=== PATIENT | female | born 1955 | race Two or more races ===

== ENCOUNTER 2024-07-03 12:51 | Observation (INO) | payer MEDICARE, SELFPAY ==
[2024-07-03] VITALS (31 sets, daily range): BP systolic 100–149; BP diastolic 60–82; PULSE 59–78; TEMP 36.7–36.8; O2SAT 92–100; BMI 21.8; BMI 23.0
[2024-07-03] MEDS: KETOROLAC TROMETHAMINE 30 MG/ML VIAL 15 MG IVP (13:44)
[2024-07-03] MEDS: ONDANSETRON PF 4 MG/2 ML VIAL IV (13:44)
[2024-07-03 13:52] LABS: Basophils Absolute Auto 0.1 10^3/uL (0.0-0.1); Basophils Percent Auto 0.5 % (0.2-2.0); Eosinophils Percent Auto 0.3 % (0.9-7.0); Hematocrit 37.3 % (36.0-48.0); Hemoglobin 12.9 g/dL (12.0-16.0); Immature Granulocytes Abs Auto 0.03 10^3/uL (0.00-0.03); Immature Granulocytes Pct Auto 0.2 % (0.0-0.5); Lymphocytes Absolute Auto 1.5 10^3/uL (1.2-3.8); Lymphocytes Percent Auto 11.7 % (20.5-60.0); Mean Corpuscular HGB Conc 34.6 g/dL (29.9-35.2); Mean Corpuscular Volume 89.7 fL (81.0-99.0); Mean Platelet Volume 11.5 fL (9.5-13.5); Monocytes Absolute Auto 0.7 10^3/uL (0.3-0.8); Monocytes Percent Auto 5.8 % (1.7-12.0); Neutrophils Absolute Auto 10.5 10^3/uL (1.4-6.5); Neutrophils Percent Auto 81.5 % (43.0-75.0); Platelet Count 239 10^3/uL (150-450); Red Blood Count 4.16 10^6/uL (4.20-5.40); Red Cell Distribution Width 12.8 % (11.0-15.0); White Blood Count 12.8 10^3/uL (4.0-11.0)
[2024-07-03 14:15] LABS: Alanine Aminotransferase 25 U/L (14-59); Albumin Globulin Ratio 1.2; Alkaline Phosphatase 77 U/L (46-116); Anion Gap 13.2; Aspartate Amino Transferase 23 U/L (15-37); BUN Creatinine Ratio 15.4; Bilirubin Total 0.6 mg/dL (0.2-1.0); Calcium 9.5 mg/dL (8.5-10.1); Carbon Dioxide 27.2 mmol/L (21.0-32.0); Chloride 100 mmol/L (98-107); Estimated GFR (African America >60 (>=60 mL/min/1.73m^2); Estimated GFR (Non-African Ame 53 (>=60 mL/min/1.73m^2); Globulin 3.4 g/dL; Glucose 121 mg/dL (74-106); Potassium 3.4 mmol/L (3.5-5.1); Sodium 137 mmol/L (136-145); Total Protein 7.4 g/dL (6.4-8.2)
--- NOTE | 2024-07-03 14:38 | ECG_ITS ---
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 Measurements Intervals [place] Rate: 60 P: 210 NM: 148 QRS: 143 QRSD: 68 T: 164 QT: 442 QTc: 442 Interpretive Statements 1200 Atrial rhythm 3534 Lateral myocardial infarction, age undetermined 5120 Possible right ventricular hypertrophy 0101 Possible arm leads reversed, check lead requested 9150 abnormal ECG No previous ECG available for comparison Electronically Signed On 07-03-2024 18:13:54 EDT by ELLIOTT HAWTHORNE M.D.
[2024-07-03] MEDS: MORPHINE SULFATE 2 MG/ML SYRINGE IV ×2 (14:53→17:20)
[2024-07-03] MEDS: PROCHLORPERAZINE 10 MG/2 ML VIAL 5 MG IV (14:53)
[2024-07-03] MEDS: FAMOTIDINE/PF 20 MG/2 ML VIAL IV (14:53)
[2024-07-03 15:04] LABS: Troponin I High Sensitivity <4.0 pg/mL (4.0-51.3)
[2024-07-03] MEDS: 0.9 % SODIUM CHLORIDE 1,000 ML 1000 ML IV (16:00)
--- NOTE | 2024-07-03 16:39 | ED.BACK1 ---
HPI HPI - Back Pain/Injury General Chief Complaint: Back Pain/Injury Stated Complaint: FLANK PAIN NAUSEA Time Seen by Provider: 07/03/24 13:11 Source: patient Mode of arrival: walk-in Limitations: no limitations History of Present Illness HPI Narrative: The patient is a 68-year-old female coming to the ER with a left-sided pain radiating to her left lower quadrant associated with crampy pain, pain is according to her is 10 out of 10 it started almost 2 days ago and the patient is having also nausea and vomiting and retching with the pain, she does have a history of constipation No history of cough chest pain or any difficulty breathing Related Data Home Medications ?Medication ?Instructions ?Recorded ?Confirmed furosemide 40 mg tablet 40 mg PO DAILY 07/03/24 07/03/24 spironolactone 25 mg tablet 25 mg PO DAILY 07/03/24 07/03/24 Allergies Allergy/AdvReac Type Severity Reaction Status Date / Time codeine AdvReac Mild emesis Verified 07/03/24 14:28 Opioid HPI Opioid Management Most Recent Opioid Data: Last Pain Scale 8 Today, 18:30 Last ED Pain Assessment Today, 16:57 Last MAR Pain Assessment Today, 13:44 Review of Systems ROS Status of ROS 10 or more systems reviewed and unremarkable except as noted in history and below PFSH PFSH Social History Little interest or pleasure in doing things: not at all Feeling down, depressed, or hopeless: not at all Exam Narrative Exam Narrative: Nurses notes and vital signs reviewed and patient is not hypoxic. General: Patient in distress due to pain and nausea Skin: Warm, dry, no pallor noted. No rash. Head: Normocephalic, atraumatic. Neck: Supple, non-tender. Cardiovascular: Regular Rate and Rhythm without murmur, gallop or rub. Respiratory: No accessory muscle use or respiratory distress. Lungs are clear to auscultation, no wheezing, rales or rhonchi Chest Wall: no tenderness Back: No midline thoracic or lumbar vertebral tenderness. Left tenderness with palpation of the CVA although the patient have no tenderness with superficial palpation and there is no Rash Musculoskeletal: normal ROM, no calf or popliteal tenderness, no lower extremity edema/swelling GI: Abdomen is soft, non-distended. Normal bowel sounds. No masses appreciated. Suprapubic discomfort Neurological: A&O x4. No cranial nerve dysfunction observed Constitutional Vital Signs, click to edit/add: Last Vital Signs Temp 98.1 F 07/03/24 16:56 Pulse 67 07/03/24 18:28 Resp 28 H 07/03/24 18:28 BP 137/75 07/03/24 18:28 Pulse Ox 97 07/03/24 18:28 Course Vital Signs Vital signs: Vital Signs Temperature 98.2 F 07/03/24 13:05 Pulse Rate 64 07/03/24 13:05 Respiratory Rate 18 07/03/24 13:05 Blood Pressure 128/80 07/03/24 13:05 Pulse Oximetry 100 07/03/24 13:05 Temperature 98.1 F 07/03/24 16:56 Pulse Rate 67 07/03/24 18:28 Respiratory Rate 28 H 07/03/24 18:28 Blood Pressure 137/75 07/03/24 18:28 Pulse Oximetry 97 07/03/24 18:28 MDM - Back Pain/Injury MDM Narrative Medical decision making narrative: The patient EKG in the ER showing sinus rhythm with a heart rate of [address] elevation or depression The patient troponin repeated twice showed no trending up that is concerning for ACS The patient CAT scan initially without contrast showed no acute pathology except for large amount of constipation Patient was treated initially with Toradol and there was no improvement when she was treated with morphine showing some improvement for her pain The patient CAT scan repeated with contrast after I explained to the patient with the fact that she is having severe pain looking for underlying pathology with the reason for the CAT scan Patient provided with IV fluids The patient pain could be mostly secondary to her back pain especially with her history of lumbar spine surgeries and chronic subluxation seen on the CAT scan The patient was in the bed the whole time she was in the ER and the patient looked herself she will be admitted for observation pain control of the intractable back pain that she is having Patient case discussed with Laurence RIVAS and she will be admitted under Lab Data Labs: Lab Results 07/03/24 07/03/24 Range/Units 13:25 17:08 WBC 12.8 H (4.0-11.0) 10^3/uL RBC 4.16 L (4.20-5.40) 10^6/uL Hgb 12.9 (12.0-16.0) g/dL Hct 37.3 (36.0-48.0) % MCV 89.7 (81.0-99.0) fL MCH 31.0 (26.7-34.0) pg MCHC 34.6 (29.9-35.2) g/dL RDW 12.8 (11.0-15.0) % Plt Count 239 (150-450) 10^3/uL MPV 11.5 (9.5-13.5) fL Neut % (Auto) 81.5 H (43.0-75.0) % Lymph % (Auto) 11.7 L (20.5-60.0) % [place] % (Auto) 5.8 (1.7-12.0) % Eos % (Auto) 0.3 L (0.9-7.0) % Baso % (Auto) 0.5 (0.2-2.0) % Neut # (Auto) 10.5 H (1.4-6.5) 10^3/uL Lymph # (Auto) 1.5 (1.2-3.8) 10^3/uL [place] # (Auto) 0.7 (0.3-0.8) 10^3/uL Eos # (Auto) 0.0 (0.0-0.7) 10^3/uL Baso # (Auto) 0.1 (0.0-0.1) 10^3/uL Abs Immat Gran (auto) 0.03 (0.00-0.03) 10^3/uL Imm/Tot Granulo (auto) 0.2 (0.0-0.5) % Sodium 137 (136-145) mmol/L Potassium 3.4 L (3.5-5.1) mmol/L Chloride 100 (98-107) mmol/L Carbon Dioxide 27.2 (21.0-32.0) mmol/L Anion Gap 13.2 BUN 16.0 (7.0-18.0) mg/dL Creatinine 1.04 H (0.55-1.02) mg/dL Est GFR ( Amer) >60 (>=60 mL/min/1.73m^2) Est GFR (Non-Af Amer) 53 L (>=60 mL/min/1.73m^2) BUN/Creatinine Ratio 15.4 Glucose 121 H (74-106) mg/dL Lactate 2.9 H* 1.4 (0.4-2.0) mmol/L Calcium 9.5 (8.5-10.1) mg/dL Total Bilirubin 0.6 (0.2-1.0) mg/dL AST 23 (15-37) U/L ALT 25 (14-59) U/L Alkaline Phosphatase 77 (46-116) U/L Troponin I High Sens <4.0 L 4.6 (4.0-51.3) pg/mL Total Protein 7.4 (6.4-8.2) g/dL Albumin 4.0 (3.4-5.0) g/dL Globulin 3.4 g/dL Albumin/Globulin Ratio 1.2 Lipase 31.0 (16.0-77.0) U/L Discharge Plan Discharge Chief Complaint: Back Pain/Injury Clinical Impression: Intractable back pain, Constipation Patient Disposition: Admitted as Observation Time of Disposition Decision: 18:40 Condition: Good
--- NOTE | 2024-07-03 16:57 | PC.NURSE ---
States since waking pain is starting to return, certain movements causes pain
[2024-07-03 17:34] LABS: Troponin I High Sensitivity 4.6 pg/mL (4.0-51.3)
[2024-07-03 17:45] LABS: Lactate/Lactic Acid 2.9 mmol/L (0.4-2.0)
[2024-07-03 18:14] LABS: Lactate/Lactic Acid 1.4 mmol/L (0.4-2.0)
[2024-07-03 19:30] LABS: Bilirubin Urine NEGATIVE (NEGATIVE); Blood Urine NEGATIVE (NEGATIVE); Clarity Urine CLEAR (CLEAR); Color Urine LT. YELLOW (YELLOW); Glucose Urine UA NEGATIVE (NEGATIVE); Ketones Urine NEGATIVE (NEGATIVE); Leukocyte Esterase Urine TRACE (NEGATIVE); Nitrite Urine NEGATIVE (NEGATIVE); Protein Urine NEGATIVE (NEG/TRACE); Urobilinogen Urine 0.2 EU/dL (0.2-1.0); pH Urine 7.5 (5.0-9.0)
[2024-07-03 19:31] LABS: Urine Microscopic Indicated YES
[2024-07-03 19:34] LABS: Bacteria Urine SMALL #/HPF (NONE SEEN); Cast Seen? NONE SEEN #/LPF (NONE SEEN); Crystals Seen? None Seen #/HPF (None Seen); Mucus Urine NONE SEEN (NONE SEEN); RBC Urine NONE SEEN #/HPF (0-2); Squamous Epithelial Cell Urine FEW #/LPF (NONE/RARE); Urine Culture Indicated YES-FRMC
[2024-07-03] MEDS: SENNOSIDES/DOCUSATE SODIUM 1 TAB TABLET PO (21:39)
[2024-07-03] MEDS: ACETAMINOPHEN 500 MG TABLET 1000 MG PO (21:39)
[2024-07-03] MEDS: 0.9 % SODIUM CHLORIDE 1,000 ML 125 ML IV (21:40)
[2024-07-03] MEDS: TIZANIDINE HCL 4 MG TABLET PO (21:40)
[2024-07-03] MEDS: ENOXAPARIN SODIUM 40 MG/0.4 ML SYRINGE SUBQ (21:40)
[2024-07-03] MEDS: LACTULOSE 10 GM/15 ML BOTTLE 237 ML PO (21:40)
[2024-07-04 02:00] VITALS: O2SAT 95
[2024-07-04] MEDS: ACETAMINOPHEN 500 MG TABLET 1000 MG PO ×2 (03:11→09:10)
[2024-07-04 03:14] VITALS: BP 115/58; PULSE 74; TEMP 36.7; O2SAT 96
[2024-07-04] MEDS: 0.9 % SODIUM CHLORIDE 1,000 ML 125 ML IV (05:10)
[2024-07-04] MEDS: TIZANIDINE HCL 4 MG TABLET PO (05:10)
[2024-07-04 06:27] LABS: Basophils Percent Auto 0.6 % (0.2-2.0); Eosinophils Absolute Auto 0.1 10^3/uL (0.0-0.7); Eosinophils Percent Auto 1.4 % (0.9-7.0); Hematocrit 30.1 % (36.0-48.0); Hemoglobin 10.3 g/dL (12.0-16.0); Immature Granulocytes Abs Auto 0.01 10^3/uL (0.00-0.03); Immature Granulocytes Pct Auto 0.2 % (0.0-0.5); Lymphocytes Percent Auto 30.7 % (20.5-60.0); Mean Corpuscular HGB Conc 34.2 g/dL (29.9-35.2); Mean Corpuscular Hemoglobin 30.8 pg (26.7-34.0); Mean Corpuscular Volume 90.1 fL (81.0-99.0); Monocytes Absolute Auto 0.6 10^3/uL (0.3-0.8); Monocytes Percent Auto 8.8 % (1.7-12.0); Neutrophils Absolute Auto 3.7 10^3/uL (1.4-6.5); Neutrophils Percent Auto 58.3 % (43.0-75.0); Platelet Count 169 10^3/uL (150-450); Red Blood Count 3.34 10^6/uL (4.20-5.40); White Blood Count 6.4 10^3/uL (4.0-11.0)
[2024-07-04 06:39] LABS: Anion Gap 10.6; BUN Creatinine Ratio 12.5; Calcium 8.5 mg/dL (8.5-10.1); Carbon Dioxide 27.8 mmol/L (21.0-32.0); Chloride 106 mmol/L (98-107); Estimated GFR (African America >60 (>=60 mL/min/1.73m^2); Estimated GFR (Non-African Ame >60 (>=60 mL/min/1.73m^2); Glucose 89 mg/dL (74-106); Potassium 3.4 mmol/L (3.5-5.1); Sodium 141 mmol/L (136-145)
[2024-07-04 07:33] VITALS: BP 113/65; PULSE 67; TEMP 36.8; O2SAT 97
[2024-07-04 08:21] VITALS: PULSE 67; O2SAT 97
[2024-07-04] MEDS: SENNOSIDES/DOCUSATE SODIUM 1 TAB TABLET PO (09:10)
[2024-07-04] MEDS: FUROSEMIDE 40 MG TABLET PO (09:10)
[2024-07-04] MEDS: SPIRONOLACTONE 25 MG TABLET PO (09:10)
[2024-07-04] MEDS: ENOXAPARIN SODIUM 40 MG/0.4 ML SYRINGE SUBQ (09:11)
--- NOTE | 2024-07-04 10:22 | PM.HP ---
HPI H&P: HPI History of Present Illness Chief complaint: INTRACTABLE BACK PAIN Narrative: History of presenting illness and Hospital course: 68-year-old female with history of essential hypertension, herniated lumbar disc status post surgery about 30 years ago presented to ED with left-sided back pain and spasms. According to the patient, she has been experiencing intermittent left sided back pain/spasm for about a month or so. She could not tell me if there is an aggravating or alleviating factor. However when her pain starts, it lasts for a few minutes and then usually goes away. She came to ED last evening because her pain was in variable and persistent. She reports feeling nauseous and throwing up once or twice because of pain. She denies radiation to left lower extremity. She denies fecal or urinary incontinence. She also denies weakness/numbness associated with her back pain. She thought her pain was secondary to kidney stones. She had a CT abdomen pelvis in ED that was negative for kidney stones but showed large stool burden, diverticulosis, right renal cysts, pancreatic cysts and possible ileitis//colitis. She also had chronic degenerative changes on CT lumbar. She was admitted for overnight observation for intractable back pain and pain control. Earlier today, she felt well and had minimal left-sided back pain. She denies nausea, vomiting or abdominal pain. Clinically she does not have any evidence of colitis/ileitis. Patient is medically stable for discharge. She was instructed to return to ED if she had worsening/intractable pain. She will be sent home on tizanidine as needed for pain. I also ordered outpatient physical therapy for her and recommended following up with PCP in 1 to 2 weeks. She will benefit from getting an MRI if her pain persists/worsens despite physical therapy as outpatient. I also informed her that she will need outpatient follow-up for incidental findings noted on CT abdomen pelvis to ensure renal/pancreatic cyst are not neoplastic. Discharge diagnoses: Intractable low back pain likely muscular sprain/spasm Discharge disposition: Home Opioid HPI Opioid Management Most Recent Pain and Opioid Data: Last Pain Scale 3 Today, 10:00 Last Pain Assessment 07/03/24, 21:00 Last ED Pain Assessment 07/03/24, 16:57 Last MAR Pain Assessment 07/03/24, 13:44 Last ORT Total Score 0 07/03/24, 20:15 Last ORT Risk Category Low Risk 05/17/25, 20:15 Review of Systems ROS Status of ROS 10 or more systems reviewed and unremarkable except as noted in history and below [facility] Medical History (Updated 07/04/24 @ 10:23 by Shaikh Kristin MD) Pancreatic cyst ?K86.2 - Cyst of pancreas (ICD-10) Renal cyst, right ?N28.1 - Cyst of kidney, acquired (ICD-10) Congestive heart failure ?I50.9 - Heart failure, unspecified (ICD-10) Surgical History (Updated 07/03/24 @ 20:55 by Erna Andrade) [place] teeth removed ?K08.409 - Partial loss of teeth, unspecified cause, unspecified class (ICD-10) Previous back surgery ?Z98.890 - Other specified postprocedural states (ICD-10) Hx of appendectomy ?Z90.49 - Acquired absence of other specified parts of digestive tract (ICD-10) Hx of cholecystectomy ?Z90.49 - Acquired absence of other specified parts of digestive tract (ICD-10) H/O: hysterectomy ?Z90.710 - Acquired absence of both cervix and uterus (ICD-10) Family History (Updated 07/03/24 @ 20:44 by Erna Andrade) Mother Family history of CHF (congestive heart failure) Family history of hypertension Family history of myocardial infarction Father Family history of CHF (congestive heart failure) Family history of cancer Family history of hypertension Family history of myocardial infarction Sister Family history of cancer Grandmother Family history of stroke Social History (Updated 07/03/24 @ 20:45 by Erna Andrade) Within the past year, how often did you have a drink containing alcohol: never Score interpretation: A score less than 3 is consistent with normal alcohol consumption. Smoking status: Never smoker Non-prescribed substance use: cannabis (any form) Non-prescribed substance use details: 1/2 gummy at bedtime Previous occupational history: retired Highest level of school completed/degree received: high school graduate Are you now , , , , never or living with a partner: In a typical week, how many times do you talk on the telephone with family, friends, or neighbors: 3 or more times per week How often do you get together with friends or relatives: 3 or more times per week How often do you attend adventism or uatsdin services: 1-3 times per year Little interest or pleasure in doing things: not at all Feeling down, depressed, or hopeless: not at all Feel stressed/tense/nervous/anxious/difficulty sleeping: not at all Do you think of yourself as: straight/heterosexual Gender Identity: female Meds Home Medications and Allergies Home Medications ?Medication ?Instructions ?Recorded ?Confirmed ?Type acetaminophen 325 mg tablet 650 mg PO Q6H PRN fever or pain 07/03/24 07/03/24 History (Aminofen) furosemide 40 mg tablet 40 mg PO DAILY 07/03/24 07/03/24 History spironolactone 25 mg tablet 25 mg PO DAILY 07/03/24 07/03/24 History tizanidine 4 mg tablet 4 mg PO Q8H PRN muscle spasticity 07/04/24 Rx #30 tabs Allergies Allergy/AdvReac Type Severity Reaction Status Date / Time codeine AdvReac Mild emesis Verified 07/03/24 14:28 Exam Constitutional Vital Signs, click to edit/add: Last Vital Signs Temp 98.3 F 07/04/24 07:33 Pulse 67 07/04/24 08:21 Resp 18 07/04/24 08:21 BP 113/65 07/04/24 07:33 Pulse Ox 97 07/04/24 08:21 O2 Del Method Room Air 07/04/24 07:33 Documenting provider has reviewed patient's vital signs: yes Common normals: no apparent distress and oriented x3 General appearance: cooperative [facility] Common normals: normocephalic and head/scalp atraumatic Head and scalp: normocephalic and atraumatic Eye Common normals: conjunctivae normal and no scleral icterus Conjunctiva: conjunctiva(e) normal Respiratory Common normals: normal respiratory effort and clear to auscultation bilaterally Effort & inspection: able to speak in complete sentences Auscultation: clear to auscultation bilaterally Cardio Common normals: regular rate, S1 normal heart sound and S2 normal heart sound Rate: regular rate Heart sounds: S1 normal and S2 normal GI Common normals: Normal to inspection, nondistended, normoactive bowel sounds present, soft to palpation, non-tender and no hepatosplenomegaly Palpation: soft and no hepatosplenomegaly Back & Pelvis Common normals: no CVA tenderness Thoracic spine/upper back: thoracic ROM normal Lumbar spine/lower back: lumbar ROM normal Pelvis: buttocks normal Sacroiliac joints: SI joints normal Extremity Common normals: no clubbing, cyanosis or edema Neuro Common normals: oriented x3, moves all extremities and no focal motor deficits Psych Common normals: mental status grossly normal, denies hallucinations, denies homicidal ideation and denies suicidal ideation Results Labs Labs: Short CBC 07/03/24 07/04/24 Range/Units 13:25 05:45 WBC 12.8 H 6.4 (4.0-11.0) 10^3/uL Hgb 12.9 10.3 L (12.0-16.0) g/dL Hct 37.3 30.1 L (36.0-48.0) % Plt Count 239 169 (150-450) 10^3/uL BMP 07/03/24 07/04/24 13:25 05:45 Sodium 137 141 Potassium 3.4 L 3.4 L Chloride 100 106 Carbon Dioxide 27.2 27.8 BUN 16.0 11.0 Creatinine 1.04 H 0.88 Glucose 121 H 89 Calcium 9.5 8.5 Liver Function 07/03/24 Range/Units 13:25 Total Bilirubin 0.6 (0.2-1.0) mg/dL AST 23 (15-37) U/L ALT 25 (14-59) U/L Alkaline Phosphatase 77 (46-116) U/L Albumin 4.0 (3.4-5.0) g/dL Urine 07/03/24 Range/Units 13:15 Urine Color Lt. yellow (YELLOW) Urine Clarity Clear (CLEAR) Urine pH 7.5 (5.0-9.0) Ur Specific [place] 1.010 (1.005-1.025) Urine Protein Negative (NEG/TRACE) mg/dL Urine Glucose (UA) Negative (NEGATIVE) mg/dL Assessment and Plan Assessment and Plan (1) Intractable back pain: (2) Constipation: Qualifiers: Constipation type: chronic idiopathic constipation Qualified Code(s): K59.04 - Chronic idiopathic constipation (3) Renal cyst, right: (4) Pancreatic cyst: Plan Continue with intractable back pain that is likely muscular and is now improved with overnight treatment. She is medically stable for discharge. She will be sent home on oral tizanidine as needed. I also ordered outpatient physical therapy for her. Patient was educated on worrisome signs and symptoms and was instructed to return to ED if she develop those signs. Patient will need to follow-up with PCP in 1 to 2 weeks.
--- NOTE | 2024-07-05 11:40 | CM.DCFOLLOWU ---
1st attempt 07/05/24, no answer
--- NOTE | 2024-07-06 12:50 | CM.DCFOLLOWU ---
2nd attempt 07/06/24, no answer
--- NOTE | 2024-07-07 11:18 | CM.DCFOLLOWU ---
Person spoke with:patient How are you feeling?not feeling well How is your pain?having pain and nausea Did you understand your discharge instructions?yes Do you have any questions about your discharge instructions?no Were you given any prescriptions at discharge?yes Were you able to get your prescriptions filled?yes Do you understand how to take your medications as ordered?yes Do you have any questions about your follow up appointment and do you plan to keep your follow up appointment?no questions. waiting for call back for new pcp. advised to call back if she does not hear back. Is there anything else that you would like to discuss?no Questions/Comments/Concerns/Other:advised to return to ED if pain and nausea continues
== END 2024-07-04 11:00 | disposition home or self-care (01) ==
LOC: ER 18:47 → MS 20:10
PROVIDERS: Registered Nurse; Admitting Provider Internal Medicine; Emergency Provider Emergency Medicine; Visit Provider Internal Medicine
DX: M54.50 Low back pain, unspecified (principal); M62.830 Muscle spasm of back; K59.04 Chronic idiopathic constipation; N28.1 Cyst of kidney, acquired; K86.2 Cyst of pancreas; K57.30 Diverticulosis of large intestine without perforation or abscess without bleeding; Z79.899 Other long term (current) drug therapy; Z88.5 Allergy status to narcotic agent
CPT/HCPCS: 36415; 74176; 74177; 80048; 80053; 81001; 83605; 83690; 83735; 84484; 85025; 87086; 93005; 94667; 94761; 96361; 96372; 96374; 96375; 96376; 99285; G0378; J0780; J1650; J1885; J2270; J2405; J3490; Q9967

== ENCOUNTER 2024-07-05 14:29 | Outpatient (RCR) | payer MEDICARE, SELFPAY | END 2024-08-11 11:20 | disposition home or self-care (01) | LOC: PT 14:29 | PROVIDERS: Visit Provider Internal Medicine | DX: M54.42 Lumbago with sciatica, left side (principal) | CPT/HCPCS: 20561; 97035; 97110; 97140; 97161 ==